=== PATIENT | male | born 1990 | race American Indian/Alaskan Native ===

== ENCOUNTER 2016-11-16 04:30 | Emergency (ER) | payer SELFPAY ==
--- NOTE | 2016-11-16 07:52 | Emergency Department Report ---
ED Rash HPI - HPI Chief Complaint: Skin Rash Stated Complaint: SHINGLES Time Seen by Provider: 11/16/16 07:47 Location: Abdomen Rash Symptoms: Yes Itching, Yes Blistering (blistery rash to left flank for 2 days), No Facial Swelling, No Tongue/Oral Swelling, No Breathing Difficulties, No Choking Sensation, No Wheezing/Dyspnea, No Peeling, No Fever, No Lightheaded , No Malaise, No Myalgias Severity: moderate Other History: 26-year-old malesignificant past medical history presents with 2 days of onset of itchy somewhat painful rash to left flank. Patient denies fever chills nausea vomiting, cough. Patient is awake alert and oriented 3 not in acute distress. States rash is very painful and has burning sensation. ED Review of Systems ROS: Stated complaint: SHINGLES Other details as noted in HPI Constitutional: denies: chills, fever Eyes: denies: eye pain, eye discharge, vision change ENT: denies: ear pain, throat pain Respiratory: denies: cough, shortness of breath, wheezing Cardiovascular: denies: chest pain, palpitations Endocrine: no symptoms reported Gastrointestinal: denies: abdominal pain, nausea, diarrhea Genitourinary: denies: urgency, dysuria Musculoskeletal: denies: back pain, joint swelling, arthralgia Skin: as per HPI, rash, pruritus. denies: lesions Neurological: denies: headache, weakness, paresthesias Psychiatric: denies: anxiety, depression Hematological/Lymphatic: denies: easy bleeding, easy bruising ED Past Medical Hx - Past Medical History Previous Medical History?: No - Surgical History Past Surgical History?: No - Social History Smoking Status: Current Every Day Smoker Substance Use Type: None - Medications Home Medications: Home Medications Medication Instructions Recorded Confirmed Last Taken Type Acetaminophen/Codeine [Tylenol 1 tab PO Q6H PRN #15 tab 11/16/16 Unknown Rx /Codeine # 3 tab] Ibuprofen [Motrin] 800 mg PO Q8HR PRN #30 tablet 11/16/16 Unknown Rx Valacyclovir HCl [Valtrex] 1,000 mg PO TID #21 tablet 11/16/16 Unknown Rx Rash Exam - Exam General: Vital signs noted. No distress. Alert and acting appropriately. HEENT: No Periorbital Edema, No Conjuctival Injection, No Chemosis, No Perioral Edema, No Tongue Edema, No Uvular Edema, No Compromised Airway, No Drooling Lungs: Yes Good Air Exchange (Normal Breath Sounds), No Wheezes, No Ronchi, No Stridor, No Cough, No Labored Respirations, No Retractions, No Use of Accessory Muscles, No Other Abnormal Lung Sounds Heart: Yes Regular, No Murmur Front/Back of Body, Lg (Color): 1 - Vesicular rash with patchy scabbing here Skin: Yes Bulla(e) (vesicular rash on left flank following a dermatomal pattern) , Yes Encrustations (some crusting of vesicles on left flank) Other: Positive: Abdomen Normal, Neurologic Normal, Musculoskeletal Normal ED Course Vital Signs 11/16/16 11/16/16 04:40 05:00 Temperature 97.6 F 97.6 F Pulse Rate 70 70 Respiratory 18 16 Rate Blood Pressure 144/86 144/86 O2 Sat by Pulse 99 99 Oximetry ED Medical Decision Making - Medical Decision Making A/P: Shingles rash 1-course of valacyclovir 2-Motrin, Tylenol 3 when necessary 3-pt has no systemic signs of disease 4-follow-up with primary care 5-I gave patient basic education on shingles sign symptoms and precautions. I advised him to refrain from coming into close contact or close quarters with women young children and elderly or otherwise sick individuals Critical care attestation.: If time is entered above; I have spent that time in minutes in the direct care of this critically ill patient, excluding procedure time. ED Disposition Clinical Impression: Shingles rash Qualifiers: Herpes zoster complications: without complications Qualified Code(s): B02.9 - Zoster without complications Disposition: TO HOME OR SELFCARE Is pt being admited?: No Does the pt Need Aspirin: No Condition: Stable Instructions: Herpes Zoster (ED) Prescriptions: Acetaminophen/Codeine [Tylenol /Codeine # 3 tab] 1 tab PO Q6H PRN #15 tab PRN Reason: Pain Ibuprofen [Motrin] 800 mg PO Q8HR PRN #30 tablet PRN Reason: Pain Valacyclovir HCl [Valtrex] 1,000 mg PO TID #21 tablet Referrals: [facility] [Outside] - 3-5 Days [facility] [Outside] - 3-5 Days DENILSON DAVIS JR, MD [Staff Physician] - 3-5 Days Forms: Work/School Release Form(ED) Time of Disposition: 07:51
[2016-11-16 08:17] VITALS: BP 140/80
== END 2016-11-16 08:14 | disposition home or self-care (01) ==
LOC: ED 04:30
DX: B02.9 Zoster without complications (principal); F17.210 Nicotine dependence, cigarettes, uncomplicated
CPT/HCPCS: 99282

== ENCOUNTER 2017-06-17 16:21 | Emergency (ER) | payer SELFPAY ==
--- NOTE | 2017-06-18 00:41 | Emergency Department Report ---
ED Abdominal Pain HPI - General Chief Complaint: Abdominal Pain Stated Complaint: STAPH INFECTION Time Seen by Provider: 06/18/17 00:39 Source: patient Mode of arrival: Ambulatory Limitations: No Limitations - History of Present Illness Initial Comments: Patient presents with report of skin infection, which have been recurrent, which are being given an discomfort across his abdomen in the area of the skin of the upper abdomen, which have been minor pustules and swelling, which have crusted over. His also noticed them in other parts of his body, including his left thigh, and his significant discomfort in the posterior aspect of his right elbow over the past day, with difficulty using his right elbow due to pain and swelling. He denies any fever or chills or diaphoresis, and has no history of trauma. He works at a local [employer], performed loading activities, was unable to work today, but was able to perform his regular activities of previous day. He does not use any injection drugs, has no prior history of significant infections or episodes such as this, and his health otherwise is generally good. - Related Data Previous Rx's Medication Instructions Recorded Last Taken Type Acetaminophen/Codeine [Tylenol 1 tab PO Q6H PRN #15 tab 11/16/16 Unknown Rx /Codeine # 3 tab] Ibuprofen [Motrin] 800 mg PO Q8HR PRN #30 tablet 11/16/16 Unknown Rx Valacyclovir HCl [Valtrex] 1,000 mg PO TID #21 tablet 11/16/16 Unknown Rx HYDROcodone/APAP 5-325 [[place] 1 - 2 each PO Q6HR PRN #15 tablet 06/18/17 Unknown Rx 5-325 mg TAB] Sulfamethoxazole/Trimethoprim 1 each PO ONCE #14 tablet 06/18/17 Unknown Rx [Bactrim DS TAB] Allergies Allergy/AdvReac Type Severity Reaction Status Date / Time No Known Allergies Allergy Verified 06/18/17 03:29 ED Review of Systems ROS: Stated complaint: STAPH INFECTION Other details as noted in HPI Comment: All other systems reviewed and negative Constitutional: see HPI. denies: chills, diaphoresis, fever ENT: denies: ear pain, throat pain Respiratory: denies: cough, shortness of breath, wheezing Cardiovascular: denies: chest pain, palpitations Endocrine: no symptoms reported. denies: increased hunger, increased thirst, increased urine Gastrointestinal: abdominal pain (localized anterior skin of abdomen and areas of superficial skin infections) Genitourinary: denies: dysuria Musculoskeletal: joint swelling, arthralgia (right elbow) Skin: lesions (abdomen, right elbow, left thigh) Neurological: denies: headache, weakness, paresthesias Psychiatric: denies: anxiety, depression Hematological/Lymphatic: denies: easy bleeding, swollen glands ED Past Medical Hx - Past Medical History Previous Medical History?: Yes Additional medical history: shingles - Surgical History Past Surgical History?: No - Social History Smoking Status: Current Some Day Smoker Substance Use Type: Alcohol, Marijuana - Medications Home Medications: Home Medications Medication Instructions Recorded Confirmed Last Taken Type Acetaminophen/Codeine [Tylenol 1 tab PO Q6H PRN #15 tab 11/16/16 Unknown Rx /Codeine # 3 tab] Ibuprofen [Motrin] 800 mg PO Q8HR PRN #30 tablet 11/16/16 Unknown Rx Valacyclovir HCl [Valtrex] 1,000 mg PO TID #21 tablet 11/16/16 Unknown Rx HYDROcodone/APAP 5-325 [[place] 1 - 2 each PO Q6HR PRN #15 tablet 06/18/17 Unknown Rx 5-325 mg TAB] Sulfamethoxazole/Trimethoprim 1 each PO ONCE #14 tablet 06/18/17 Unknown Rx [Bactrim DS TAB] ED Physical Exam - General Limitations: No Limitations General appearance: in distress (secondary discomfort primarily of right elbow) - Head Head exam: Present: atraumatic, normocephalic - Eye Eye exam: Present: normal appearance - ENT ENT exam: Present: mucous membranes moist - Neck Neck exam: Present: normal inspection, full ROM. Absent: tenderness - Respiratory Respiratory exam: Present: normal lung sounds bilaterally. Absent: wheezes, rales, rhonchi - Cardiovascular Cardiovascular Exam: Present: regular rate, normal heart sounds - GI/Abdominal GI/Abdominal exam: Present: soft. Absent: tenderness, guarding, rebound - Rectal Rectal exam: Present: deferred - Extremities Exam Extremities exam: Present: tenderness (right elbow with erythema and mild swelling around posterior elbow and bursa) - Back Exam Back exam: Present: normal inspection. Absent: CVA tenderness (R), CVA tenderness (L), paraspinal tenderness - Neurological Exam Neurological exam: Present: alert, oriented X3 - Psychiatric Psychiatric exam: Present: normal affect, normal mood - Skin Skin exam: Present: warm, dry, other (partially healed indurated abscess, left thigh, scattered anterior abdominal healing pustules) ED Course Vital Signs 06/17/17 06/18/17 16:52 00:20 Temperature 98.1 F Pulse Rate 68 Respiratory 16 20 Rate Blood Pressure 116/64 O2 Sat by Pulse 97 98 Oximetry ED Medical Decision Making - Lab Data Result diagrams: 06/18/17 01:23 06/18/17 01:23 - Radiology Data Radiology results: report reviewed Normal x-ray without signs of joint effusion or fracture or dislocation, there is mild posterior soft tissue swelling - Medical Decision Making Patient has a minimally elevated white count, mildly elevated lactate, negative sedimentation rate, minimal findings for sepsis, and no radiographic findings suggestive of a elbow infectious arthritis. Findings are more compatible with a skin infection with scattered pustules and cellulitis, and patient will be treated with a dose of Rocephin, and discharged on Bactrim, rest, and control of discomfort. He should have recheck in 2-3 days by a primary care physician to assess his level of improvement. Work release provided. Critical Care Time: No Critical care attestation.: If time is entered above; I have spent that time in minutes in the direct care of this critically ill patient, excluding procedure time. ED Disposition Clinical Impression: Cellulitis of right elbow Cellulitis Qualifiers: Site of cellulitis: trunk Site of cellulitis of trunk: abdominal wall Qualified Code(s): L03.311 - Cellulitis of abdominal wall Disposition: DC-01 TO HOME OR SELFCARE Is pt being admited?: No Does the pt Need Aspirin: No Condition: Stable Additional Instructions: Take Bactrim twice daily We have provided work release so that he could rest and elevate her elbow while recovering. Have recheck by family doctor in 24-48 hours to assess improvement. Return earlier to the emergency department if you feel that you are getting worse in any way. Prescriptions: HYDROcodone/APAP 5-325 [[place]ford 5-325 mg TAB] 1 - 2 each PO Q6HR PRN #15 tablet PRN Reason: Pain Sulfamethoxazole/Trimethoprim [Bactrim DS TAB] 1 each PO ONCE #14 tablet Referrals: PRIMARY CAREM[facility] [Primary Care Provider] - 3-5 Days KIANA MCMULLEN MD [Staff Physician] - 3-5 Days Forms: Work/School Release Form(ED) Time of Disposition: 04:07
[2017-06-18] MEDS ORDERED: MOTRIN PO ONE (01:01)
[2017-06-18 02:01] LABS: BUN/Creatinine Ratio 16; Blood Urea Nitrogen 14 mg/dL (9-20); Calcium 10.1 mg/dL (8.4-10.2); Hemolysis Index 8
[2017-06-18 02:09] LABS: Basophils # (Auto) 0.1 K/mm3 (0.0-0.1); Basophils % (Auto) 0.7 % (0.0-1.8); Eosinophils # (Auto) 0.1 K/mm3 (0.0-0.4); Eosinophils % (Auto) 0.9 % (0.0-4.3); Hematocrit 45.2 % (35.5-45.6); Hemoglobin 15.1 gm/dl (11.8-15.2); Lymphocytes # (Auto) 2.4 K/mm3 (1.2-5.4); Lymphocytes % (Auto) 18.8 % (13.4-35.0); Mean Corpuscular HGB Conc 33 % (32-34); Mean Corpuscular Hemoglobin 29 pg (28-32); Mean Corpuscular Volume 88 fl (84-94); Monocytes % (Auto) 7.6 % (0.0-7.3); Platelet Count 313 K/mm3 (140-440); Red Blood Count 5.12 M/mm3 (3.65-5.03); Red Cell Distribution Width 14.4 % (13.2-15.2)
--- NOTE | 2017-06-18 02:43 | XRay Report ---
FINAL REPORT PROCEDURE: XR ELBOW 3+V RT TECHNIQUE: Right elbow radiographs, AP and lateral views. HISTORY: pain swelling, no trauma COMPARISON: No prior studies are available for comparison. FINDINGS: Fracture (s) and/or Dislocation(s): None. Alignment: Normal. Joint space (s): Normal Soft tissues:There is soft tissue swelling at the olecranon process of the ulna. Bone mineralization:Normal. Foreign bodies: None. IMPRESSION: There is no fracture or malalignment. There is no joint effusion. There is soft tissue swelling at the olecranon process of the ulna.
[2017-06-18 02:44] LABS: Erythrocyte Sedimentation Rate 2 mm/Hr (0-20)
[2017-06-18] MEDS ORDERED: NACL 0.9% 1000 ML 1,000 ML ONE (03:23)
[2017-06-18] MEDS ORDERED: ROCEPHIN IM ONE (03:59)
[2017-06-18] MEDS ORDERED: XYLOCAINE 1% MPF 5 mL INFILTRATI ONE (03:59)
[2017-06-18] MEDS ORDERED: BACTRIM DS PO ONE (04:00)
[2017-06-18 04:56] VITALS: BP 118/72
== END 2017-06-18 04:56 | disposition home or self-care (01) ==
LOC: ED 16:21
DX: L03.311 Cellulitis of abdominal wall (principal); L03.113 Cellulitis of right upper limb; F17.200 Nicotine dependence, unspecified, uncomplicated; F12.10 Cannabis abuse, uncomplicated; L98.8 Other specified disorders of the skin and subcutaneous tissue
CPT/HCPCS: 36415; 73080; 80048; 82140; 85025; 85652; 87040; 96372; 99284; J0696; J7030